=== PATIENT | male | born 1945 | race Caucasian/White ===

== ENCOUNTER → 2020-11-15 | Outpatient (CLI) | payer MEDICARE ==
[2020-10-27 10:39] VITALS: BP 126/64
[~2020-11-15] MED LIST: ALBU2.5V8 IH; AMOX1TAB61 PO; ASCO500C9 PO; ASPI-886 PO; B6/F1CAP PO; CYAN50003 SL; LEVO750T5 PO; LIPITOR80 MG PO; MAGN400C3 PO; METO25TA4 PO; MULT-445 PO; OMEG-117 PO; UBID200C32 PO; ZINC30CA PO
--- NOTE | 2020-11-15 16:51 | RAD ---
PQRS Compliance Statement: One or more of the following individualized dose reduction techniques were utilized for this examinat ion: 1. Automated exposure control 2. Adjustment of the mA and/or kV according to patient size 3. Use of iterative reconstruction technique CT THORAX WO Clinical Indication: Reason: Empysema / Spl. Instructions: / History: Comparison: CT chest with contrast October 23, 2020. TECHNIQUE: Helical CT imaging of the chest is performed without IV contrast. Findings: Left chest cardiac event monitor. There is no adenopathy in the chest. The great vessels are stable. There is three-vessel coronary artery disease. There is unchanged left ventricular calcification. Car diac size upper limits of normal. No pericardial effusion. The inferior left pleural space pigtail catheter has been removed. There is small left pleural effusi on, less than on prior study. Loculated components to the effusion adjacent to the mediastinum and tr acking along the major fissure have resolved. The central airways are patent. Stable tiny nodule along the right major fissure may be perifissural lymph node, image 26. There is mild scarring or atelectasis in the right lower lobe. The previously s een consolidation is nearly resolved. Consolidations in the left lower lobe and lingula are significa ntly improved. Stable right hepatic cyst. Thoracic spine alignment is maintained. IMPRESSION: 1. Small left pleural effusion is smaller. Loculated components of the left effusion have resolved. 2. Consolidations in the bilateral lower lobes and in the lingula are significantly improved. Electronically signed by: Kehinde Cowart MD (11/15/2020 4:49 PM) [id number]
== END ==
LOC: CT 12:47
PROVIDERS: ATTEND Internal Medicine Critical Care Medicine
DX: J90 Pleural effusion, not elsewhere classified (principal); R91.1 Solitary pulmonary nodule; J43.9 Emphysema, unspecified; I25.10 Atherosclerotic heart disease of native coronary artery without angina pectoris; K76.89 Other specified diseases of liver
CPT/HCPCS: 71250

== ENCOUNTER 2020-11-24 13:32 | Emergency (ER) | payer MEDICARE ==
[~2020-11-24] VITALS: Ht 175.3 cm; Wt 71.8 kg
[~2020-11-24 13:32] MED LIST changes: -ALBU2.5V8 IH; -LEVO750T5 PO
--- NOTE | 2020-11-24 14:46 | ED.ADGEN ---
Past Medical History Past Surgical History: Other Additional Past Surgical Histo: CARDIAC STENTS, NOSE CAUTERIZED RECENTLY Smoking Status: Never Smoker Alcohol Use: None General Adult EDM: Chief Complaint: SHORTNESS OF BREATH HPI: HPI: Patient is a 75-year-old male who arrives ambulatory to the emergency department complaining of a 2-day history of progressive shortness of air as well as feeling lightheaded. Patient has a very complex history and that he had a collapsed lung related to a pulmonary infection for which she was treated at this hospital. Patient recently completed his last dose of oral antibiotics 1 week previously. He has been in regular follow-up with Dr. Watts for this condition. Patient states however he has developed shortness of air and feels heaviness at the left side of his chest in the region of the lung where his infection was. Patient denies any history of fever. He further denies any history of chest pain or recent trauma. He is awake, alert and nontoxic- appearing. Review of Systems: Review of Systems: Constitutional: Denies fever or chills. [] Eyes: Denies change in visual acuity. [] HENT: Denies nasal congestion or sore throat. [] Respiratory: Reports shortness of air. Denies cough. [] Cardiovascular: Denies chest pain or edema. [] GI: Denies abdominal pain, nausea, vomiting, bloody stools or diarrhea. [] : Denies dysuria. [] Musculoskeletal: Denies back pain or joint pain. [] Integument: Denies rash. [] Neurologic: Reports feeling lightheaded. Denies headache, focal weakness or sensory changes. [] Endocrine: Denies polyuria or polydipsia. [] Lymphatic: Denies swollen glands. [] Psychiatric: Denies depression or anxiety. [] Current Medications: Current Medications Medications (Trade) Dose Ordered Sig/Jeannie Start Time Stop Time Status Last Admin Dose Admin Info (CONTRAST GIVEN -- Rx MONITORING) 1 each PRN DAILY PRN 11/24/20 16:15 11/26/20 16:14 Iohexol (Omnipaque 350 Mg/ml) 100 ml 1X ONCE 11/24/20 16:00 11/24/20 16:01 DC 11/24/20 16:05 100 ML Allergies: Allergies: Allergies Coded Allergies Type Severity Reaction Last Updated Verified Sulfa (Sulfonamide Antibiotics) Allergy Severe Swelling 10/15/20 Yes Physical Exam: PE: Constitutional: Well developed, well nourished, no acute distress, non-toxic appearance. [] HENT: Normocephalic, atraumatic, bilateral external ears normal, oropharynx moist, no oral exudates, nose normal. [] Eyes: PERRLA, EOMI, conjunctiva normal, no discharge. [] Neck: Normal range of motion, no tenderness, supple, no stridor. [] Cardiovascular: Tachycardia. No murmur [] Lungs & Thorax: Bilateral breath sounds clear to auscultation [] Abdomen: Bowel sounds normal, soft, no tenderness, no masses, no pulsatile masses. [] Skin: Warm, dry, no erythema, no rash. [] Back: No tenderness, no CVA tenderness. [] Extremities: No tenderness, no cyanosis, no clubbing, ROM intact, no edema. [] Neurologic: Alert and oriented X 3, normal motor function, normal sensory function, no focal deficits noted. [] Psychologic: Affect normal, judgement normal, mood normal. [] Current Patient Data: Labs: Laboratory Tests Test 11/24/20 14:30 11/24/20 14:50 White Blood Count 10.8 x10^3/uL (4.0-11.0) Red Blood Count 2.88 x10^6/uL (4.30-5.70) L Hemoglobin 9.0 g/dL (13.0-17.5) L Hematocrit 26.3 % (39.0-53.0) L Mean Corpuscular Volume 91 fL (79-100) Mean Corpuscular Hemoglobin 31 pg (25-35) Mean Corpuscular Hemoglobin Concent 34 g/dL (31-37) Red Cell Distribution Width 16.1 % (11.5-14.5) H Platelet Count 216 x10^3/uL (140-400) Neutrophils (%) (Auto) 79 % (31-73) H Lymphocytes (%) (Auto) 13 % (24-48) L Monocytes (%) (Auto) 8 % (0-9) Eosinophils (%) (Auto) 0 % (0-3) Basophils (%) (Auto) 1 % (0-3) Neutrophils # (Auto) 8.5 x10^3/uL (1.8-7.7) H Lymphocytes # (Auto) 1.4 x10^3/uL (1.0-4.8) Monocytes # (Auto) 0.9 x10^3/uL (0.0-1.1) Eosinophils # (Auto) 0.0 x10^3/uL (0.0-0.7) Basophils # (Auto) 0.0 x10^3/uL (0.0-0.2) Sodium Level 139 mmol/L (136-145) Potassium Level 4.0 mmol/L (3.5-5.1) Chloride Level 107 mmol/L (98-107) Carbon Dioxide Level 23 mmol/L (21-32) Anion Gap 9 (6-14) Blood Urea Nitrogen 32 mg/dL (8-26) H Creatinine 0.9 mg/dL (0.7-1.3) Estimated GFR (Cockcroft-Gault) 82.3 BUN/Creatinine Ratio 36 (6-20) H Glucose Level 125 mg/dL (70-99) H Calcium Level 8.8 mg/dL (8.5-10.1) Total Bilirubin 0.3 mg/dL (0.2-1.0) Aspartate Amino Transferase (AST) 32 U/L (15-37) Alanine Aminotransferase (ALT) 58 U/L (16-63) Alkaline Phosphatase 78 U/L (46-116) Troponin I Quantitative < 0.017 ng/mL (0.000-0.055) GJ-Fwl-T-Type Natriuretic Peptide 187 pg/mL (0-449) Total Protein 6.1 g/dL (6.4-8.2) L Albumin 3.0 g/dL (3.4-5.0) L Albumin/Globulin Ratio 1.0 (1.0-1.7) SARS-CoV-2 Antigen (Rapid) Negative (NEGATIVE) Laboratory Tests 11/24/20 14:30 Laboratory Tests 11/24/20 14:30 Vital Signs: Vital Signs Date Time Temp Pulse Resp B/P (MAP) Pulse Ox O2 Delivery O2 Flow Rate FiO2 11/24/20 14:16 98.0 108 22 114/58 (76) 97 Room Air 98.0 EKG: EKG: [] EKG was obtained at 1421 hrs. reveals a sinus tachycardia with a ventricular rate of 103 bpm. There is left axis deviation as well as a left anterior fascicular block present. There are no acute ST/T wave changes to denote ischemia. Heart Score: C/O Chest Pain: No Risk Factors: Risk Factors: DM, Current or recent (<one month) smoker, HTN, HLP, family history of CAD, obesity. Risk Scores: Score 0 - 3: 2.5% MACE over next 6 weeks - Discharge Home Score 4 - 6: 20.3% MACE over next 6 weeks - Admit for Clinical Observation Score 7 - 10: 72.7% MACE over next 6 weeks - Early Invasive Strategies Radiology/Procedures: Radiology/Procedures: [] Impression: [id number] [place] [address] IMAGING REPORT Signed PATIENT: JULITA MONDRAGON ACCOUNT: [id number] : 1945 LOCATION: ER AGE: 75 SEX: M EXAM STATUS: REG ER ORD. PHYSICIAN: YURIY DEGROOT DO REASON: Short of air PROCEDURE: PORTABLE CHEST 1V XR CHEST 1V History: Reason: Short of air / Spl. Instructions: / History: Comparison: October 26, [address] November 15, 2020. Findings: Small loculated left pleural effusion, similar compared to prior CT. Linear patchy left basilar opacities, unchanged. Unchanged heart size. No pneumothorax. Impression: 1. Unchanged small loculated left pleural effusion with adjacent opacities. Electronically signed by: Iron Espitia DO (11/24/2020 3:18 PM) [id number] DICTATED and SIGNED BY: IRON ESPITIA DO DATE: 11/24/20 [id number] [facility] [address] [place] [address] IMAGING REPORT Signed PATIENT: JULITA MONDRAGON ACCOUNT: [id number] : 1945 LOCATION: ER AGE: 75 SEX: M EXAM STATUS: REG ER ORD. PHYSICIAN: YURIY DEGROOT DO REASON: Shortness of air PROCEDURE: CT ANGIOGRAPHY CHEST CTA Chest with contrast: Clinical History: Dyspnea. Axial helical images of the chest were obtained after the administration of 100 cc of IV Omni 350 and timed appropriately for a pulmonary arterial study. Conventional axial reconstruction was performed in addition to coronal, sagittal and bilateral oblique MIP (maximum intensity projection). This study was ordered to detect possible pulmonary embolism. Comparison is made to November 15, 2020 CT the chest without contrast There are no filling defects to suggest pulmonary embolism. There is a mild left effusion with adjacent infiltrate. There is additional l inear opacities in the lower lobes bilaterally and the lingula. There is no mediastinal or hilar lymphadenopathy. The thoracic aorta appears normal. There is a large simple cyst in the right lobe of the liver. Impression: 1. No evidence of pulmonary embolism. 2. Small left effusion and mild bilateral infiltrates unchanged from the prior study. End impression PQRS Compliance Statement: One or more of the following individualized dose reduction techniques were utilized for this examination: 1. Automated exposure control 2. Adjustment of the mA and/or kV according to patient size 3. Use of iterative reconstruction technique Electronically signed by: Sophia Crawley III, MD (11/24/2020 4:17 PM) [facility] DICTATED and SIGNED BY: SOPHIA CRAWLEY III, MD DATE: 11/24/20 [id number] Course & Med Decision Making: Course & Med Decision Making Pertinent Labs and Imaging studies reviewed. (See chart for details) The patient remains awake, alert and in no acute distress. Patient is breathing much better now. He does admit that his breathing becomes laborious whenever he exerts himself especially when he climbs stairs. This is not surprising giving the stent to the patient's history with respect to his injury and subsequent pneumothorax. I did speak with Dr. Barnett and he is in agreement the patient can go home and follow-up next week. I have encouraged the patient return should he experience any new shortness of air or substernal chest discomfort. The patient understands and has agreed to do so. He is nontoxic-appearing and stable for discharge in the company of his daughter. [] Dragon Disclaimer: Dragon Disclaimer: This electronic medical record was generated, in whole or in part, using a voice recognition dictation system. Departure Departure Impression: Primary Impression: Dyspnea Disposition: HOME / SELF CARE / HOMELESS Condition: STABLE Referrals: MICHELLE GARCIA MD (PCP) GARY GALVAN MD Patient Instructions: Shortness of Breath Scripts Levofloxacin (LEVOFLOXACIN) 750 Mg Tablet 1 TAB PO DAILY, #7 TAB Prov: YURIY DEGROOT DO 11/24/20 Albuterol Sulfate (PROAIR HFA INHALER) 8.5 Gm Hfa.aer.ad 2 PUFF IH PRN Q4-6HRS PRN for wheezing for 21 Days, #1 INHALER 0 Refills Prov: YURIY DEGROOT DO 11/24/20 YURIY DEGROOT DO Nov 24, 2020 14:46
[2020-11-24 14:52] LABS: BASO % 1 % (0-3); EOS % 0 % (0-3); HEMATOCRIT 26.3 % (39.0-53.0); LYMPH # 1.4 x10^3/uL (1.0-4.8); LYMPH % 13 % (24-48); MEAN CORPUSCULAR HEMOGLOBIN 31 pg (25-35); MEAN CORPUSCULAR HGB CONC 34 g/dL (31-37); MEAN CORPUSCULAR VOLUME 91 fL (79-100); MONO # 0.9 x10^3/uL (0.0-1.1); MONO % 8 % (0-9); NEUT # 8.5 x10^3/uL (1.8-7.7); NEUT % 79 % (31-73); PLATELET COUNT 216 x10^3/uL (140-400); RED BLOOD COUNT 2.88 x10^6/uL (4.30-5.70); RED CELL DISTRIBUTION WIDTH 16.1 % (11.5-14.5); WHITE BLOOD COUNT 10.8 x10^3/uL (4.0-11.0)
--- NOTE | 2020-11-24 15:20 | RAD ---
XR CHEST 1V History: Reason: Short of air / Spl. Instructions: / History: Comparison: October 26, [address] November 15, 2020. Findings: Small loculated left pleural effusion, similar compared to prior CT. Linear patchy left basilar opaci ties, unchanged. Unchanged heart size. No pneumothorax. Impression: 1. Unchanged small loculated left pleural effusion with adjacent opacities. Electronically signed by: Iron Espitia DO (11/24/2020 3:18 PM) [id number]
[2020-11-24 15:21] LABS: CALCIUM 8.8 mg/dL (8.5-10.1); CREATININE 0.9 mg/dL (0.7-1.3); GFR 82.3
[2020-11-24 15:27] LABS: TOTAL BILIRUBIN 0.3 mg/dL (0.2-1.0); TOTAL PROTEIN 6.1 g/dL (6.4-8.2)
[2020-11-24] MEDS ORDERED: IOHEXOL 350 MG/ML 100 ML VIAL. IV ONE (16:00)
[2020-11-24] MEDS ORDERED: CONTRAST GIVEN. MC PRN (16:15)
--- NOTE | 2020-11-24 16:20 | RAD ---
CTA Chest with contrast: Clinical History: Dyspnea. Axial helical images of the chest were obtained after the administration of 100 cc of IV Omni 350 and timed appropriately for a pulmonary arterial study. Conventional axial reconstruction was performed in addition to coronal, sagittal and bilateral oblique MIP (maximum intensity projection). This deepak dy was ordered to detect possible pulmonary embolism. Comparison is made to November 15, 2020 CT the chest without contrast There are no filling defects to suggest pulmonary embolism. There is a mild left effusion with adjacent infiltrate. There is additional linear opacities in the l ower lobes bilaterally and the lingula. There is no mediastinal or hilar lymphadenopathy. The thoracic aorta appears normal. There is a large simple cyst in the right lobe of the liver. Impression: 1. No evidence of pulmonary embolism. 2. Small left effusion and mild bilateral infiltrates unchanged from the prior study. End impression PQRS Compliance Statement: One or more of the following individualized dose reduction techniques were utilized for this examinat ion: 1. Automated exposure control 2. Adjustment of the mA and/or kV according to patient size 3. Use of iterative reconstruction technique Electronically signed by: Aravind Cardoso III, MD (11/24/2020 4:17 PM) [facility]
[2020-11-24] MEDS ORDERED: ALBU2.5V8 IH (16:42)
[2020-11-24] MEDS ORDERED: LEVO750T5 PO (16:42)
[2020-11-24 17:00] VITALS: BP 107/57
== END 2020-11-24 17:07 | disposition home or self-care (01) ==
LOC: ER 13:32
DX: R06.02 Shortness of breath (principal); Z20.822 Contact with and (suspected) exposure to COVID-19; R42 Dizziness and giddiness; Z95.5 Presence of coronary angioplasty implant and graft; Z88.2 Allergy status to sulfonamides
CPT/HCPCS: 36415; 71045; 71275; 80053; 83880; 84484; 85025; 87426; 93005; 99285; Q9967; U0003; U0005

== ENCOUNTER 2020-12-16 16:46 | Emergency (ER) | payer MEDICARE ==
[~2020-12-16] VITALS: Ht 172.7 cm; Wt 75.8 kg
[~2020-12-16 16:46] MED LIST changes: +ALBU2.5V8 IH; +LEVO750T5 PO
[2020-12-16] MEDS ORDERED: ONDANSETRON PF 4 MG/2 ML VIAL. IVP ONE (18:30)
[2020-12-16] MEDS ORDERED: MORPHINE SULFATE 10 MG/ML VIAL. IV ONE (18:30)
--- NOTE | 2020-12-16 18:36 | PHYS DOC ---
Past Medical History Past Surgical History: Other Additional Past Surgical Histo: CARDIAC STENTS, NOSE CAUTERIZED RECENTLY Smoking Status: Former Smoker Alcohol Use: None General Adult EDM: Chief Complaint: ABDOMINAL PAIN HPI: HPI: 75-year-old male presents to the emergency department complaining of right lower quadrant abdominal pain with gradual onset of feels occasionally dull and sharp for the last several days. He reports no radiation of pain from the right lower quadrant. He still has an appendix, he has never had pain like this before. He denies any associated nausea vomiting or diarrhea. He further denies any swelling in his testicles, testicular pain or further lesions. The patient denies fever, chills, chest pain, shortness of breath, abdominal pain, urinary symptoms, cough, recent trauma, or any other complaints. Review of Systems: Review of Systems: ROS otherwise negative except for what was mentioned in HPI Heart Score: C/O Chest Pain: No Current Medications: Current Medications Medications (Trade) Dose Ordered Sig/Jeannie Start Time Stop Time Status Last Admin Dose Admin Morphine Sulfate (Morphine Sulfate) 5 mg 1X ONCE 12/16/20 18:30 12/16/20 18:31 DC Ondansetron HCl (Zofran) 4 mg 1X ONCE 12/16/20 18:30 12/16/20 18:31 DC Allergies: Allergies: Allergies Coded Allergies Type Severity Reaction Last Updated Verified Sulfa (Sulfonamide Antibiotics) Allergy Severe Swelling 10/15/20 Yes Physical Exam: PE: Constitutional: No acute distress, non-toxic appearance. HENT: Atraumatic, bilateral external ears normal, nose normal. Eyes: PERRLA, EOMI, conjunctiva normal, no discharge. Neck: Normal range of motion, supple, no stridor. Cardiovascular: Heart rate regular rhythm. 2+ radial pulses Lungs & Thorax: No respiratory distress, symmetrical expansion. Abdomen: Right lower quadrant tenderness palpation, soft, no rebound or guarding. Skin: Warm, dry. Extremities: No tenderness, no cyanosis, ROM intact, no edema. Neurologic: Alert and oriented X 3, normal motor function, normal sensory function, no focal deficits noted. Non ataxic gait. GCS 15. Psychologic: Affect normal, judgment normal, mood normal. Current Patient Data: Labs: Laboratory Tests Test 12/16/20 17:55 12/16/20 18:40 Urine Collection Type Void Urine Color Yellow Urine Clarity Clear Urine pH 6.5 (<5.0-8.0) Urine Specific [place] 1.010 (1.000-1.030) Urine Protein Negative mg/dL (NEG-TRACE) Urine Glucose (UA) Negative mg/dL (NEG) Urine Ketones (Stick) Negative mg/dL (NEG) Urine Blood Negative (NEG) Urine Nitrite Negative (NEG) Urine Bilirubin Negative (NEG) Urine Urobilinogen Dipstick 0.2 mg/dL (0.2 mg/dL) Urine Leukocyte Esterase Negative (NEG) Urine RBC 0 /HPF (0-2) Urine WBC 0 /HPF (0-4) Urine Squamous Epithelial Cells Occ /LPF Urine Bacteria 0 /HPF (0-FEW) White Blood Count 5.6 x10^3/uL (4.0-11.0) Red Blood Count 3.72 x10^6/uL (4.30-5.70) Hemoglobin 10.5 g/dL (13.0-17.5) Hematocrit 32.8 % (39.0-53.0) Mean Corpuscular Volume 88 fL (79-100) Mean Corpuscular Hemoglobin 28 pg (25-35) Mean Corpuscular Hemoglobin Concent 32 g/dL (31-37) Red Cell Distribution Width 16.0 % (11.5-14.5) Platelet Count 216 x10^3/uL (140-400) Neutrophils (%) (Auto) 59 % (31-73) Lymphocytes (%) (Auto) 20 % (24-48) Monocytes (%) (Auto) 14 % (0-9) Eosinophils (%) (Auto) 6 % (0-3) Basophils (%) (Auto) 1 % (0-3) Neutrophils # (Auto) 3.3 x10^3/uL (1.8-7.7) Lymphocytes # (Auto) 1.1 x10^3/uL (1.0-4.8) Monocytes # (Auto) 0.8 x10^3/uL (0.0-1.1) Eosinophils # (Auto) 0.3 x10^3/uL (0.0-0.7) Basophils # (Auto) 0.1 x10^3/uL (0.0-0.2) Sodium Level 143 mmol/L (136-145) Potassium Level 3.7 mmol/L (3.5-5.1) Chloride Level 109 mmol/L (98-107) Carbon Dioxide Level 25 mmol/L (21-32) Anion Gap 9 (6-14) Blood Urea Nitrogen 14 mg/dL (8-26) Creatinine 0.9 mg/dL (0.7-1.3) Estimated GFR (Cockcroft-Gault) 82.3 BUN/Creatinine Ratio 16 (6-20) Glucose Level 111 mg/dL (70-99) Calcium Level 8.3 mg/dL (8.5-10.1) Total Bilirubin 0.3 mg/dL (0.2-1.0) Aspartate Amino Transf (AST/SGOT) 29 U/L (15-37) Alanine Aminotransferase (ALT/SGPT) 46 U/L (16-63) Alkaline Phosphatase 76 U/L (46-116) Total Protein 6.3 g/dL (6.4-8.2) Albumin 3.1 g/dL (3.4-5.0) Albumin/Globulin Ratio 1.0 (1.0-1.7) Lipase 127 U/L (73-393) Vital Signs: Vital Signs Date Time Temp Pulse Resp B/P (MAP) Pulse Ox O2 Delivery O2 Flow Rate FiO2 12/16/20 19:33 80 20 161/68 (99) 97 Room Air 12/16/20 18:47 60 20 136/65 (88) 100 Room Air 12/16/20 17:30 97.9 71 18 144/64 (90) 99 Room Air 97.9 My Orders - JASON ANGEL DO Procedure Category Date Status Time Cbc W Autodiff LAB 12/16/20 Complete 18:25 Lipase LAB 12/16/20 Complete 18:25 Comprehensive LAB 12/16/20 Complete Metabolic Panel 18:25 Ct Abd Pelv W/ Iv CT 12/16/20 Resulted Contrst Only 18:25 Pulse Oximetry: FRANCK 12/16/20 In Process Standing Order 18:25 Ondansetron Pf PHA 12/16/20 Complete (Zofran) 18:30 Morphine Sulfate PHA 12/16/20 Complete (Morphine Sulfate) 18:30 Ua, Cult If Indicated LAB 12/16/20 Complete 18:30 Iohexol 300 Mg/Ml PHA 12/16/20 Complete (Omnipaque 300 Mg/Ml) 19:45 Contrast Given -- PHA 12/16/20 In Process Info Only (Contrast Gi 19:45 Radiology/Procedures: Radiology/Procedures: PROCEDURE: CT ABD PELV W/ IV CONTRST ONLY Exam: CT of abdomen and pelvis with contrast INDICATION: Abdominal pain, right lower quadrant TECHNIQUE: Sequential axial images through the abdomen and pelvis obtained following the administration of 75 mL of Isovue-370 IV contrast. Sagittal and coronal reformatted images were reconstructed from the axial data and reviewed. Exposure: One or more of the following in the visualized dose reduction techniques were utilized for this examination: 1. Automated exposure control 2. Adjustment of the MA and/or KV according to patient size 3. Use of iterative of reconstructive technique Comparisons: None FINDINGS: Heart size is normal. No pericardial effusion. Trace left pleural effusion with adjacent atelectasis. Hypoattenuating cyst within the right hepatic dome Represent simple cysts. Spleen, pancreas, gallbladder and adrenals are unremarkable. No perinephric inflammation or hydronephrosis. No renal or ureteral calculi are identified. Bladder is partially distended and appears thin-walled. Prostate is not enlarged. Diverticulosis is noted sigmoid colon without evidence of acute diverticulitis. Appendix is not identified. No free intra-abdominal air or fluid. No obstruction. Abdominal aorta has normal course and caliber. Abdominal vasculature is patent. No enlarged intra-abdominal lymph nodes are identified. No suspicious osseous lesions or acute fractures. IMPRESSION: 1. No acute process identified within the abdomen or pelvis. 2. Diverticulosis without evidence of acute diverticulitis. 3. Trace left pleural effusion with adjacent airspace disease likely atelectasis. 4. Appendix is not identified, correlate with surgical history. Electronically signed by: Sherrell Kim MD (12/16/2020 7:43 PM) Course & Med Decision Making: Course & Med Decision Making Labs and CT scan are reassuring, patient feels much better after pain medicine and nausea medicine, advised to eat a bland diet for the next few days and take MiraLAX as needed. Patient will follow with primary care provider. Vitals are stable no further concerns upon discharge counseling. Return precautions were discussed. Departure Departure Impression: Primary Impression: RLQ abdominal pain Condition: GOOD Referrals: MICHELLE GARCIA MD (PCP) Patient Instructions: Abdominal Pain (Nonspecific) Additional Instructions: You were seen in the emergency department for abdominal pain. Your tests did not show any obvious acute cause of your symptoms and your physical exam was non concerning for a dangerous disease process at this time. This however can change early in a disease course. You must return to the ED if you develop any new or worrisome symptoms for another exam. - Make sure to drink plenty of fluids at home - You may take a gentle laxative such as Miralax (over the counter) for bowel comfort. - Avoid drinking alcohol while you are having abdominal pain as this may worsen symptoms. - Return to the ER if you are not able to tolerate water and/or a normal diet, have increased pain or a change in character of your pain, develop a fever (>100.3 F), have nausea, vomiting and/or diarrhea that is unable to be treated at home, pass out, and/or you are not able to perform you normal daily activity. JASON ANGEL DO Dec 16, 2020 18:36
[2020-12-16 18:38] LABS: BILIRUBIN,URINE NEGATIVE (NEG); CLARITY,URINE CLEAR; COLOR,URINE YELLOW; NITRITE,URINE NEGATIVE (NEG); PH,URINE 6.5 (<5.0-8.0); PROTEIN,URINE NEGATIVE (NEG-TRACE); UROBILINOGEN,URINE 0.2 mg/dL (0.2 mg/dL)
[2020-12-16 18:47] LABS: BASO # 0.1 x10^3/uL (0.0-0.2); BASO % 1 % (0-3); EOS # 0.3 x10^3/uL (0.0-0.7); EOS % 6 % (0-3); HEMATOCRIT 32.8 % (39.0-53.0); HEMOGLOBIN 10.5 g/dL (13.0-17.5); LYMPH # 1.1 x10^3/uL (1.0-4.8); LYMPH % 20 % (24-48); MEAN CORPUSCULAR HEMOGLOBIN 28 pg (25-35); MEAN CORPUSCULAR HGB CONC 32 g/dL (31-37); MEAN CORPUSCULAR VOLUME 88 fL (79-100); MONO # 0.8 x10^3/uL (0.0-1.1); MONO % 14 % (0-9); NEUT # 3.3 x10^3/uL (1.8-7.7); NEUT % 59 % (31-73); PLATELET COUNT 216 x10^3/uL (140-400); RED BLOOD COUNT 3.72 x10^6/uL (4.30-5.70); WHITE BLOOD COUNT 5.6 x10^3/uL (4.0-11.0)
[2020-12-16 18:47] LABS: BACTERIA,URINE 0 /HPF (0-FEW); RBC,URINE 0 /HPF (0-2); WBC,URINE 0 /HPF (0-4)
[2020-12-16 19:02] LABS: CALCIUM 8.3 mg/dL (8.5-10.1); CREATININE 0.9 mg/dL (0.7-1.3); GFR 82.3; POTASSIUM 3.7 mmol/L (3.5-5.1)
[2020-12-16 19:08] LABS: ALBUMIN 3.1 g/dL (3.4-5.0); TOTAL BILIRUBIN 0.3 mg/dL (0.2-1.0); TOTAL PROTEIN 6.3 g/dL (6.4-8.2)
[2020-12-16] MEDS ORDERED: CONTRAST GIVEN. MC PRN (19:45)
[2020-12-16] MEDS ORDERED: IOHEXOL 300 MG/ML 100ML VIAL. IV ONE (19:45)
--- NOTE | 2020-12-16 19:45 | RAD ---
Exam: CT of abdomen and pelvis with contrast INDICATION: Abdominal pain, right lower quadrant TECHNIQUE: Sequential axial images through the abdomen and pelvis obtained following the administrati on of 75 mL of Isovue-370 IV contrast. Sagittal and coronal reformatted images were reconstructed fro m the axial data and reviewed. Exposure: One or more of the following in the visualized dose reduction techniques were utilized for this examination: 1. Automated exposure control 2. Adjustment of the MA and/or KV according to patient size 3. Use of iterative of reconstructive technique Comparisons: None FINDINGS: Heart size is normal. No pericardial effusion. Trace left pleural effusion with adjacent atelectasis. Hypoattenuating cyst within the right hepatic dome Represent simple cysts. Spleen, pancreas, gallbladder and adrenals are unremarkable. No perinephric inflammation or hydronephrosis. No renal or ureteral calculi are identified. Bladder is partially distended and appears thin-walled. Prostate is not enlarged. Diverticulosis is noted sigmoid colon without evidence of acute diverticulitis. Appendix is not ident ified. No free intra-abdominal air or fluid. No obstruction. Abdominal aorta has normal course and caliber. Abdominal vasculature is patent. No enlarged intra-abdominal lymph nodes are identified. No suspicious osseous lesions or acute fractures. IMPRESSION: 1. No acute process identified within the abdomen or pelvis. 2. Diverticulosis without evidence of acute diverticulitis. 3. Trace left pleural effusion with adjacent airspace disease likely atelectasis. 4. Appendix is not identified, correlate with surgical history. Electronically signed by: Sherrell Kim MD (12/16/2020 7:43 PM) [facility]
[2020-12-16 20:41] VITALS: BP 125/60
== END 2020-12-16 21:21 | disposition home or self-care (01) ==
LOC: ER 16:46
DX: R10.31 Right lower quadrant pain (principal); Z88.2 Allergy status to sulfonamides
CPT/HCPCS: 36415; 74177; 80053; 81001; 83690; 85025; 96374; 96375; 99285; J2270; J2405; Q9967